=== PATIENT | male | born 1965 | race Caucasian/White ===

== ENCOUNTER → 2020-10-19 18:07 | Outpatient (CLI) | payer BC, SELFPAY ==
[2020-10-19 18:30] LABS: Basophils # 0.1 K/mm3 (0-0.2); Basophils % 0.6 % (0.1-2.0); Eosinophils # 0.1 K/mm3 (0.0-0.4); Eosinophils % 1.4 % (0.1-12.0); Hematocrit 44.9 % (42.0-52.0); Hemoglobin 15.2 g/dL (14.1-18.0); Lymphocytes # 2.9 K/mm3 (0.7-4.5); Lymphocytes % 31.3 % (10-50); Mean Corpuscular HGB Conc 33.7 g/dL (31.8-35.4); Mean Corpuscular Hemoglobin 31.9 pg (27.0-31.2); Mean Corpuscular Volume 94.6 fl (80-94); Mean Platelet Volume 7.4 fl (7.4-10.4); Monocytes # 0.5 K/mm3 (0.1-1.0); Monocytes % 5.8 % (1.7-9.3); Neutrophils # 5.7 K/mm3 (1.8-7.8); Neutrophils % 60.9 % (37.0-80.0); Platelet Count 317 K/mm3 (142-424); Red Blood Count 4.75 M/mm3 (4.60-6.20); Red Cell Distribution Width 13.6 % (11.5-17.5); White Blood Count 9.3 K/mm3 (4.8-10.8)
[2020-10-19 18:58] LABS: Alanine Aminotransferase 30 U/L (12-78); Albumin Level 4.4 g/dl (3.5-5.0); Albumin/Globulin Ratio 1.6 (1.1-1.8); Alkaline Phosphatase 84 U/L (38-126); Aspartate Amino Transferase 27 U/L (17-59); Bilirubin,Total 0.7 mg/dl (0.2-1.3); Blood Urea Nitrogen 13 mg/dl (9-20); Calcium 9.9 mg/dl (8.4-10.2); Carbon Dioxide 29 mmol/L (22.0-30.0); Chloride 102 mmol/L (98-107); Chol/HDL Ratio 2.9 (1-3.5); Cholesterol 177 mg/dl (140-200); Estimated Glomerular Filt Rate 87 ml/min (>60); GFR (African American) 106 ML/MIN (>60); Globulin 2.8 g/dL (1.3-3.2); Glucose 83 mg/dl (74-100); HDL Cholesterol 62 mg/dl (40-60); Sodium 139 mmol/L (136-145); Total Protein,Serum 7.2 g/dl (6.3-8.2); Triglycerides 48 mg/dl (30-150); VLDL Cholesterol 10 mg/dL (0-40)
[2020-10-19 19:09] LABS: Direct LDL Cholesterol 91.64 mg/dL (100-129)
[2020-10-19 19:29] LABS: Prostate Specific Ag Screen 0.4 ng/ml (0.0-4.0)
== END ==
PROVIDERS: Visit Provider Family Medicine
DX: Z12.5 Encounter for screening for malignant neoplasm of prostate (principal); Z00.00 Encounter for general adult medical examination without abnormal findings
CPT/HCPCS: 80053; 80061; 85025; G0103

== ENCOUNTER → 2022-01-24 16:07 | Outpatient (CLI) | payer BC, SELFPAY ==
[2022-01-24 18:13] LABS: Basophils # 0.1 K/mm3 (0-0.2); Basophils % 0.8 % (0.1-2.0); Eosinophils # 0.2 K/mm3 (0.0-0.4); Eosinophils % 2.2 % (0.1-12.0); Hematocrit 43.2 % (42.0-52.0); Hemoglobin 14.1 g/dL (14.1-18.0); Lymphocytes # 2.4 K/mm3 (0.7-4.5); Lymphocytes % 33.6 % (10-50); Mean Corpuscular HGB Conc 32.5 g/dL (31.8-35.4); Mean Corpuscular Hemoglobin 31.4 pg (27.0-31.2); Mean Corpuscular Volume 96.6 fl (80-94); Mean Platelet Volume 7.9 fl (7.4-10.4); Monocytes # 0.4 K/mm3 (0.1-1.0); Monocytes % 6.2 % (1.7-9.3); Neutrophils # 4.1 K/mm3 (1.8-7.8); Neutrophils % 57.3 % (37.0-80.0); Platelet Count 286 K/mm3 (142-424); Red Blood Count 4.47 M/mm3 (4.60-6.20); Red Cell Distribution Width 13.4 % (11.5-17.5); White Blood Count 7.1 K/mm3 (4.8-10.8)
[2022-01-24 18:31] LABS: Alanine Aminotransferase 24 U/L (12-78); Albumin Level 4.3 g/dl (3.5-5.0); Albumin/Globulin Ratio 1.7 (1.1-1.8); Alkaline Phosphatase 60 U/L (38-126); Anion Gap 11.2 mEq/L (5-15); Aspartate Amino Transferase 24 U/L (17-59); Bilirubin,Total 0.7 mg/dl (0.2-1.3); Blood Urea Nitrogen 22 mg/dl (9-20); Calcium 9.3 mg/dl (8.4-10.2); Carbon Dioxide 29 mmol/L (22.0-30.0); Chloride 106 mmol/L (98-107); Chol/HDL Ratio 2.9 (1-3.5); Cholesterol 183 mg/dl (140-200); Estimated Glomerular Filt Rate 87 ml/min (>60); GFR (African American) 105 ML/MIN (>60); Globulin 2.5 g/dL (1.3-3.2); Glucose 77 mg/dl (74-100); HDL Cholesterol 64 mg/dl (40-60); Potassium 4.2 mmoL/L (3.5-5.1); Sodium 142 mmol/L (136-145); Total Protein,Serum 6.8 g/dl (6.3-8.2); Triglycerides 117 mg/dl (30-150); VLDL Cholesterol 23 mg/dL (0-40)
[2022-01-24 18:43] LABS: Direct LDL Cholesterol 85.21 mg/dL (100-129)
[2022-01-24 18:48] LABS: 25-OH Vitamin D, Total 35.7 ng/mL (30-100)
[2022-01-24 18:49] LABS: T4 (Thyroxine) 8.4 ug/dl (5.53-11.0)
[2022-01-24 19:02] LABS: Prostate Specific Ag Screen 0.7 ng/ml (0.0-4.0)
== END ==
PROVIDERS: Visit Provider Family Medicine
DX: R53.83 Other fatigue (principal); E55.9 Vitamin D deficiency, unspecified; Z12.5 Encounter for screening for malignant neoplasm of prostate
CPT/HCPCS: 80053; 80061; 82306; 84436; 84443; 85025; G0103

== ENCOUNTER 2022-11-05 08:03 | Emergency (ER) | payer BC, SELFPAY ==
[2022-11-05 08:04] VITALS: BP 170/102; PULSE 85; RESP 18; TEMP 36.5; O2SAT 99; BMI 25.4
--- NOTE | 2022-11-05 08:19 | HMH.EDGENADL ---
Discharge Plan Disposition Patient Disposition: Home, Self-Care Condition: Good Prescriptions Prescriptions: New prednisone 20 mg tablet 20 mg PO BID Qty: 10 0RF Referrals Follow up/Referrals: Bryson Cristobal MD [Primary Care Provider] - See instructions Activity Restrictions/Add. Instructions Additional Instructions/Restrictions: Prednisone as prescribed. Tylenol 3 as needed for pain. Follow-up with primary care provider, call for appointment. Clinical Impressions Clinical Impression: Cervical radiculopathy Instructions Patient Instructions: DI for Cervical Radiculopathy Discharge ED Provider: Israel Contreras General Adult HPI General Chief complaint: PAIN Stated complaint: pain in Rt side of neck and shoulder, no accident Time Seen by Provider: 11/05/22 08:20 Mode of Arrival: Ambulatory Source of Information: Patient Limitations: No Limitations Description of Symptoms (Recalled from ER Triage Doc. by RN): c/o right neck pain when he turns his head to the right with some pain radiating down his right shoulder. Pt states a few days ago he woke up with a stiff neck. States he had this same issue a few weeks ago but only lasted for a few hours. Denies any injury. Tried Aleeve and biofreeze at home with no improvement. History of Present Illness HPI narrative: Complains of pain in the right side of his neck. States that he woke up with a stiff neck. Pain worsens when he turns his head to the right. Radiates to his right shoulder but no radiation down the arm. No numbness or weakness of the arm, hand, or fingers. No trauma. He has tried Aleve, Biofreeze, and putting snow on it without improvement. No prior history of neck problems, surgery, trauma. No history of IV drug abuse or diabetes. No fever or any other constitutional symptoms. Related Data Previous Rx's Medication Instructions Recorded prednisone 20 mg tablet 20 mg PO BID #10 tabs 11/05/22 Allergies Allergy/AdvReac Type Severity Reaction Status Date / Time No Known Allergies Allergy Verified 01/24/22 16:50 [facility] Disclaimer: The information contained in this section may have been updated after the patient was seen, as this information can be updated by other users. Social History Smoking Status: Never smoker alcohol intake: never substance use type: denies use current occupational status: employed Travel in the last 8 weeks: None ROS Obtained: Yes Systems reviewed as appropriate & no additional complaints except as documented Constitutional Constitutional: Denies excessive sweating, Denies fever(s) and Denies weakness ENT Ears, Nose, Mouth, and Throat: Reports neck pain Cardiovascular Cardiovascular: Denies chest pain Respiratory Respiratory: Denies shortness of breath and Denies cough Gastrointestinal Gastrointestingal: Denies nausea or vomiting Musculoskeletal Musculoskeletal: Reports neck pain and Denies numbness Neurologic Neurologic: Denies numbness and Denies weakness Endocrine Endocrine: Denies excessive sweating Physical Exam General General appearance: alert and in no apparent distress Neck Neck exam: Present normal inspection, trachea midline and tenderness (Right lateral neck); Absent lymphadenopathy Expanded Neck Exam Comment: Limited range of motion to right rotation, but no radiation down the arm with Spurling. Chest Chest inspection: Present normal inspection and symmetric chest wall rise Respiratory Respiratory exam: Absent respiratory distress Cardiovascular Cardiovascular exam: Present regular rate Neurological Exam Neurological exam: Present alert, oriented X3 and CN II-XII intact; Absent motor sensory deficit Psychiatric Psychiatric exam: Present normal affect and normal mood Skin Skin exam: Present warm and dry Medical Decision Making Ran Inquiry Pt receiving controlled substance: No Vital Signs: 11/05/22 08:04 11/05/22 09:26 11/05/22 08:31 [place]
--- NOTE | 2022-11-05 08:25 | XR_ITS ---
PROCEDURE INFORMATION: Exam: XR Cervical Spine Exam date and time: 11/05/2022 8:24 AM Age: 56 years old Clinical indication: Neck pain TECHNIQUE: Imaging protocol: Radiologic exam of the cervical spine. Views: 2 or 3 views. COMPARISON: No relevant prior studies available. FINDINGS: Bones/joints: Diminished cervical lordosis and mild degenerative change. Anatomic alignment. Partial obscuration of the odontoid. Soft tissues: Normal caliber of the prevertebral soft tissues. IMPRESSION: Diminished cervical lordosis and mild degenerative change.
[2022-11-05 08:31] VITALS: BP 166/95; PULSE 78; O2SAT 100
[2022-11-05 09:15] VITALS: BP 161/104; PULSE 73; O2SAT 96
[2022-11-05 09:26] VITALS: BP 155/100; PULSE 73; RESP 17; TEMP 36.5; O2SAT 96
== END 2022-11-05 09:27 | disposition home or self-care (01) ==
PROVIDERS: Emergency Provider Emergency Medicine; PCP Family Medicine
DX: M54.12 Radiculopathy, cervical region (principal); M25.511 Pain in right shoulder; M43.6 Torticollis; Z79.52 Long term (current) use of systemic steroids
CPT/HCPCS: 72040; 96372; 99284; J2405

== ENCOUNTER 2024-07-04 15:33 | Emergency (ER) | payer BC, SELFPAY ==
--- NOTE | 2024-07-04 17:08 | EXP.UTC ---
Discharge Plan Disposition Patient Disposition: Home, Self-Care Condition: Good Prescriptions Prescriptions: New cyclobenzaprine 10 mg Tablet 10 mg PO BID PRN (Reason: Muscle Spasm) Qty: 20 0RF methylprednisolone 4 mg Tablets,Dose Pack 4 mg PO DIRECTED 6 Days Qty: 21 0RF Rx Instructions: Take 1 pack as directed for 6 days No Action losartan 100 mg tablet See Rx Instructions .ROUTE .COMPLEX Qty: 90 0RF Dose Instruction: TAKE 1 TABLET BY MOUTH DAILY Rx Instructions: TAKE 1 TABLET BY MOUTH DAILY Referrals Follow up/Referrals: Navjot Garcia DO [Staff Physician] - See instructions Bryson Cristobal MD [Primary Care Provider] - See instructions Activity Restrictions/Add. Instructions Additional Instructions/Restrictions: Rest the extremity' Take the medications as directed. Don't start the oral steroids (medrol dose pack) until tomorrow since you had the shot here today. The cyclobenzaprine (flexeril-muscle relaxer) will make you drowsy, so don't drive or operate heavy machinery after taking it. Follow up with Dr. Garcia (orthopedics) if you continue to have symptoms. I put in a referral but you need to call his office and schedule an appointment. Follow up with your regular doctor. GO TO THE ER FOR ANY WORSENING SYMPTOMS Clinical Impressions Clinical Impression: Left shoulder pain, Tendinopathy of left shoulder Instructions Patient Instructions: DI for Shoulder Tendinopathy, DI for Shoulder Pain Print Language Print Language: Omani Discharge ED Provider: Rajesh Harry [facility] General Stated complaint: Left shoulder pain,no injury Time Seen by Provider: 07/04/24 17:07 History of Present Illness Provider Complaint: He states that he has had left shoulder pain that is worse when he raises it over his head. He denies any injury. Related Data Previous Rx's ?Medication ?Instructions ?Recorded losartan 100 mg tablet See Rx Instructions .Route 09/10/23 .COMPLEX #90 tabs cyclobenzaprine 10 mg tablet 10 mg PO BID PRN Muscle Spasm #20 07/04/24 tabs methylprednisolone 4 mg tablets in 4 mg PO DIRECTED 6 days #21 tabs 07/04/24 a dose pack Allergies Allergy/AdvReac Type Severity Reaction Status Date / Time No Known Allergies Allergy Verified 12/05/22 16:49 [facility] Disclaimer: The information contained in this section may have been updated after the patient was seen, as this information can be updated by other users. Social History Smoking Status: Never smoker alcohol intake: never substance use type: denies use current occupational status: employed Travel in the last 8 weeks: None ROS Obtained: Yes All systems reviewed & no additional complaints except as documented Constitutional Constitutional: Denies chills and Denies fever(s) Eyes Eyes: Denies eye discharge ENT Ears, Nose, Mouth, and Throat: Denies dizziness, Denies otalgia and Denies sore throat Cardiovascular Cardiovascular: Denies chest pain Respiratory Respiratory: Denies shortness of breath, Denies chest congestion, Denies cough, Denies stridor and Denies wheezing Gastrointestinal Gastrointestingal: Denies nausea or vomiting Musculoskeletal Musculoskeletal: Reports as per HPI Integumentary/Breasts Skin/Breast: Denies rash Neurologic Neurologic: Denies dizziness and Denies paresthesias Allergic/Immunologic Allergic/Immunologic: Denies wheezing Physical Exam General General appearance: alert and in no apparent distress Head Head exam: atraumatic, normocephalic and normal inspection Eye Eye exam: Present normal appearance, PERRL and EOMI ENT ENT exam: Present normal exam, normal oropharynx, mucous membranes moist, TM's normal bilaterally and normal external ear exam Neck Neck exam: Present normal inspection, full ROM and trachea midline; Absent meningismus or lymphadenopathy Chest Chest inspection: Present norm
[2024-07-04 17:15] VITALS: BP 141/87; PULSE 86; RESP 20; TEMP 36.7; O2SAT 98; BMI 26.9
[2024-07-04 17:44] VITALS: BP 141/87; PULSE 86; RESP 20; TEMP 36.7; O2SAT 98
== END 2024-07-04 17:53 | disposition home or self-care (01) ==
PROVIDERS: Emergency Provider Nurse Practitioner Family; PCP Family Medicine
DX: M25.512 Pain in left shoulder (principal); M67.814 Other specified disorders of tendon, left shoulder
CPT/HCPCS: 96372; 99204; 99212; G0463; J1100

== ENCOUNTER 2024-09-05 15:08 | Outpatient (CLI) | payer BC, SELFPAY ==
[2024-09-05 18:27] LABS: Basophils # 0.1 K/mm3 (0-0.2); Basophils % 0.7 % (0.1-2.0); Eosinophils # 0.2 K/mm3 (0.0-0.4); Eosinophils % 1.8 % (0.1-12.0); Hematocrit 40.7 % (42.0-52.0); Hemoglobin 13.8 g/dL (14.1-18.0); Lymphocytes # 2.3 K/mm3 (0.7-4.5); Lymphocytes % 27.9 % (10-50); Mean Corpuscular HGB Conc 33.9 g/dL (31.8-35.4); Mean Corpuscular Volume 94.5 fl (80-94); Mean Platelet Volume 7.3 fl (7.4-10.4); Monocytes # 0.6 K/mm3 (0.1-1.0); Monocytes % 6.9 % (1.7-9.3); Neutrophils # 5.2 K/mm3 (1.8-7.8); Neutrophils % 62.8 % (37.0-80.0); Platelet Count 326 K/mm3 (142-424); Red Blood Count 4.31 M/mm3 (4.60-6.20); Red Cell Distribution Width 13.2 % (11.5-17.5); White Blood Count 8.4 K/mm3 (4.8-10.8)
[2024-09-05 19:02] LABS: Alanine Aminotransferase 21 U/L (12-78); Albumin Level 4.1 g/dl (3.5-5.0); Albumin/Globulin Ratio 1.7 (1.1-1.8); Alkaline Phosphatase 80 U/L (38-126); Aspartate Amino Transferase 23 U/L (17-59); Bilirubin,Total 0.7 mg/dl (0.2-1.3); Blood Urea Nitrogen 21 mg/dl (9-20); Calcium 9.3 mg/dl (8.4-10.2); Carbon Dioxide 27 mmol/L (22.0-30.0); Chloride 108 mmol/L (98-107); Chol/HDL Ratio 2.9 (1-3.5); Cholesterol 172 mg/dl (140-200); Estimated Glomerular Filt Rate 86 ml/min (>60); GFR (African American) 104 ML/MIN (>60); Globulin 2.4 g/dL (1.3-3.2); Glucose 84 mg/dl (74-100); HDL Cholesterol 59 mg/dl (40-60); Sodium 141 mmol/L (136-145); Total Protein,Serum 6.5 g/dl (6.3-8.2); Triglycerides 149 mg/dl (30-150); VLDL Cholesterol 30 mg/dL (0-40)
[2024-09-05 19:13] LABS: Direct LDL Cholesterol 95.76 mg/dL (100-129)
[2024-09-05 19:18] LABS: 25-OH Vitamin D, Total 29.8 ng/mL (30-100)
[2024-09-05 19:34] LABS: Prostate Specific Ag Screen 2.1 ng/ml (0.0-4.0); Thyroid Stimulating Hormone 1.23 uIU/mL (0.465-4.68)
== END 2024-09-05 23:59 | disposition home or self-care (01) ==
LOC: LAB.DROPOF 09-08 15:08
PROVIDERS: PCP Family Medicine; Visit Provider Family Medicine
DX: Z00.00 Encounter for general adult medical examination without abnormal findings (principal)
CPT/HCPCS: 80050; 80053; 80061; 82306; 84443; 85025; G0103

== ENCOUNTER 2024-09-05 15:39 | Outpatient (CLI) | payer BC, SELFPAY ==
--- NOTE | 2024-09-05 15:48 | XR_ITS ---
PROCEDURE INFORMATION: Exam: XR Left Ribs Exam date and time: 09/05/2024 3:51 PM Age: 58 years old Clinical indication: Chest wall pain; Left; Additional info: Pain with breathing rib pain TECHNIQUE: Imaging protocol: Radiologic exam of the left ribs. Views: 2 views. COMPARISON: CR XR CHEST 2V 09/05/2024 3:51 PM FINDINGS: Bones/joints: Minimally displaced left 9th rib fracture. Soft tissues: Normal. IMPRESSION: Minimally displaced left 9th rib fracture
--- NOTE | 2024-09-05 15:48 | XR_ITS ---
PROCEDURE INFORMATION: Exam: XR Chest Exam date and time: 09/05/2024 3:51 PM Age: 58 years old Clinical indication: Chest wall pain; Additional info: Pain with deep breath TECHNIQUE: Imaging protocol: Radiologic exam of the chest. Views: 2 views. COMPARISON: CR XR RIBS LT 2V 09/05/2024 3:51 PM FINDINGS: Lungs: Unremarkable. No consolidation. Pleural spaces: Unremarkable. No pleural effusion. No pneumothorax. Heart/Mediastinum: Unremarkable. No cardiomegaly. Bones/joints: Unremarkable. IMPRESSION: No acute findings.
== END 2024-09-05 23:59 | disposition home or self-care (01) ==
LOC: RAD 15:42
PROVIDERS: PCP Family Medicine; Visit Provider Family Medicine
DX: R07.1 Chest pain on breathing (principal); R07.81 Pleurodynia
CPT/HCPCS: 71046; 71100

== ENCOUNTER 2024-10-15 18:44 | Emergency (ER) | payer BC, SELFPAY ==
[2024-10-15 18:45] VITALS: BP 163/104; PULSE 105; RESP 18; TEMP 36.6; O2SAT 96; BMI 26.9
[2024-10-15 19:23] VITALS: BP 163/104; PULSE 105; O2SAT 97
--- NOTE | 2024-10-15 19:41 | CT_ITS ---
PROCEDURE INFORMATION: Exam: CT Lumbar Spine Without Contrast Exam date and time: 10/15/2024 7:53 PM Age: 58 years old Clinical indication: Low back pain; Additional info: Sever midline pain l3-4 TECHNIQUE: Imaging protocol: Computed tomography of the lumbar spine without contrast. Radiation optimization: All CT scans at this facility use at least one of these dose optimization techniques: automated exposure control; mA and/or kV adjustment per patient size (includes targeted exams where dose is matched to clinical indication); or iterative reconstruction. COMPARISON: No relevant prior studies available. FINDINGS: Bones/joints: Mild facet hypertrophy is documented at the L3-S1 levels. Decreased disc space height L3-L4 with small Schmorl's node at inferior endplate. Bony central canal is widely patent. Soft tissues: Unremarkable. IMPRESSION: 1. No visible acute abnormality. No acute fracture or central canal stenosis. 2. Incidental findings above.
[2024-10-15 19:45] VITALS: BP 145/94; PULSE 107; O2SAT 98
[2024-10-15] MEDS: predniSONE 20MG TAB 40 MG PO (19:45)
[2024-10-15] MEDS: METHOCARBAMOL 500MG TABLET 1500 MG PO (19:45)
[2024-10-15] MEDS: LIDOCAINE 5% TRANSDERMAL PATCH 1 EACH TP (19:45)
--- NOTE | 2024-10-15 20:20 | HMH.EDGENADL ---
Discharge Plan Disposition Patient Disposition: Home, Self-Care Prescriptions Prescriptions: New prednisone 20 mg tablet 40 mg PO DAILY 5 Days Qty: 10 0RF methocarbamol 750 mg tablet 1,500 mg PO TID 5 Days Qty: 30 0RF lidocaine 5 % adhesive patch,medicated 1 patch topical DAILY Qty: 30 0RF Rx Instructions: leave on most painful area for up to 12 hrs No Action losartan 100 mg tablet See Rx Instructions .ROUTE .COMPLEX Qty: 90 0RF Dose Instruction: TAKE 1 TABLET BY MOUTH DAILY Rx Instructions: TAKE 1 TABLET BY MOUTH DAILY tizanidine 4 mg tablet 4 mg PO BID PRN (Reason: muscle spasticity) Qty: 20 4RF Referrals Follow up/Referrals: Jessica Long APRN [Primary Care Provider] - See instructions Activity Restrictions/Add. Instructions Additional Instructions/Restrictions: Call your family doctor to establish care for this visit to the emergency department and schedule follow-up within 48 hours to ensure improvement. If you have any worsening of your condition or any other concerning signs or symptoms, return to the emergency department or your primary care doctor for further evaluation. Prednisone each morning for the next 5 days. Lidocaine patches each day to help with pain. Robaxin 3 times daily as needed for discomfort. Clinical Impressions Clinical Impression: Lumbago Qualifiers: Chronicity: acute Back pain laterality: midline Sciatica presence: without sciatica Qualified Code(s): M54.50 - Low back pain, unspecified Instructions Patient Instructions: DI for Low Back Pain Print Language Print Language: Russian Discharge ED Provider: Paddy Bridges General Adult HPI General Chief complaint: Back Pain/Injury Stated complaint: back pain Time Seen by Provider: 10/15/24 19:23 Mode of Arrival: Ambulatory Source of Information: Patient Limitations: No Limitations Description of Symptoms (Recalled from ER Triage Doc. by RN): Patient reports 10/10 back pain since yesterday afternoon. Took ibuprofen at 3pm. Has not seen pcp. Describes pain as sharp- denies any numbness. History of Present Illness HPI narrative: Please note that above description of symptoms, in this electronic medical record under categorization of recalled from ER triage doctor by RN are reflective of an initial nursing assessment, however, is not reflective of my full history and physical exam that was personally taken and clarified. Consequentially, this preceding description of symptoms, which may include the patient's categorized chief complaint in the EMR, do not reflect my personal clinical impression, and the ultimate description of history of present illness and patient stated complaints should be deferred to this section of the note. Unless stated otherwise or congruent with this section of the note, additional signs, symptoms, or incongruence should be interpreted as inaccurate with my clinical impression. Related Data Previous Rx's ?Medication ?Instructions ?Recorded losartan 100 mg tablet See Rx Instructions .Route 09/05/24 .COMPLEX #90 tabs tizanidine 4 mg tablet 4 mg PO BID PRN muscle spasticity 10/03/24 #20 tabs lidocaine 5 % topical patch 1 patch topical DAILY #30 ea 10/15/24 methocarbamol 750 mg tablet 1,500 mg (2 x 750 mg) PO TID 5 10/15/24 days #30 tabs prednisone 20 mg tablet 40 mg (2 x 20 mg) PO DAILY 5 days 10/15/24 #10 tabs Allergies Allergy/AdvReac Type Severity Reaction Status Date / Time No Known Allergies Allergy Verified 10/03/24 14:42 [facility] Disclaimer: The information contained in this section may have been updated after the patient was seen, as this information can be updated by other users. Social History Smoking Status: Never smoker alcohol intake: never substance use type: denies use current occupational status: employed Travel in the last 8 weeks: None Other Medical History Have you received the Pneumonia Vaccine: No ROS Obtained: Yes All systems reviewed & no additional complaints except as documented Physical Exam General General appearance: alert and in distress (Intermittently having spasms with pain) Head Head exam: atraumatic and normocephalic Eye Eye exam: Present normal appearance, PERRL and EOMI Neck Neck exam: Present normal inspection, full ROM and trachea midline Respiratory Respiratory exam: Absent respiratory distress, wheezes, stridor, accessory muscle use or prolonged expiratory phase Cardiovascular Cardiovascular exam: Present other (Pulses equal symmetric in upper and lower extremities) Abdominal Exam Abdominal exam: Present soft; Absent distention, tenderness or pulsatile mass Extremities Exam Extremities exam: Absent edema Back Exam Back exam: Absent tenderness (No tenderness elicited on my exam, but patient states that his pain is midline) Neurological Exam Neurological exam: Present alert, oriented X3, CN II-XII intact and normal gait; Absent motor sensory deficit Skin Skin exam: Present warm and dry; Absent diaphoresis or erythema Medical Decision Making Medical Records Medical records reviewed: Yes I reviewed the patient's medical records. Screening: Per USPSTF and CDC recommendations, given the prevalence of disease in our region, it is our hospital?s policy to screen for HIV and viral Hepatitis for all patients aged 18 and over and those with ongoing risk factors. Ran Inquiry Pt receiving controlled substance: No Ran was queried for this patient: No Vital Signs: 10/15/24 18:45 10/15/24 19:23 10/15/24 19:45 Temperature 97.9 F Temperature Source Oral Pulse Rate 105 H 107 H Pulse Rate [Right Radial] 105 H Respiratory Rate 18 Blood Pressure 163/104 H 145/94 H Blood Pressure [Right Arm] 163/104 H Blood Pressure Mean [Right Arm] 123 Blood Pressure Source [Right Arm] Automatic Cuff Blood Pressure Position [Right Arm] Supine 02 Sat by Pulse Oximetry 96 97 98 Oxygen Delivery Method Room Air Lab Data Lab Results 10/15/24 20:32: Urine Color Yellow, Urine Appearance Clear, Urine pH 6.0, Ur Specific [place] >= 1.030, Urine Protein Negative, Urine Glucose (UA) Negative, Urine Ketones Negative, Urine Blood Negative, Urine Nitrate Negative, Urine Bilirubin Negative, Urine Urobilinogen 0.2, Ur Leukocyte Esterase Negative, Urine RBC 10-20, Urine WBC Occasional, Ur Squamous Epith Cells Occasional, Urine Bacteria 1+, Urine Mucus 3+ Orders (Tests/Meds): ED MEDICATIONS Discontinued Medications Generic Name Dose Route Start Last Admin Trade Name Freq PRN Reason Stop Dose Admin Lidocaine 1 each 10/15/24 19:41 10/15/24 19:45 Lidocaine 5% Transdermal Patch TP 10/15/24 19:42 1 each ONCE ONE Administration Methocarbamol 1,500 mg 10/15/24 19:41 10/15/24 19:45 Methocarbamol 500mg Tablet PO 10/15/24 19:42 1,500 mg ONCE ONE Administration Prednisone 40 mg 10/15/24 19:41 10/15/24 19:45 Prednisone 20mg Tab PO 10/15/24 19:42 40 mg ONCE ONE Administration ORDERS Category Date Time Status CT lumbar spine wo con Stat Cat Scan 10/15/24 19:41 Completed UA [Urinalysis and Microscopic] Stat Lab 10/15/24 20:32 Completed Medical Decision Narrative: 58-year-old male history of hypertension presenting with back pain. Patient states that he is very physically active job, also lifts weights multiple times a week. Has been having progressively worsening midline lumbar spine pain. No notable injury to the area, but given history, likely. No bowel or bladder dysfunction, saddle anesthesia, numbness, weakness, tingling, falls, or any other concerns. No fevers or chills, no history of IV drug abuse. Has been taking muscle relaxers without relief. History was obtained via conversation with patient. On arrival, patient hemodynamically stable, alert, oriented x4, appropriate, GCS 15, moving all extremities spontaneously, pupils equal and reactive to light. Full physical exam performed and significant for 58-year-old male ambulating around the room appears to be in intermittent pain with spasms. No pain elicited on my exam, but he is neurologically intact and has pain that he states is midline, just deeper than able to touch. No overlying skin changes.. Differential includes disc herniation, muscle spasm, radiculopathy, radiculitis, less likely to be epidural abscess, epidural hematoma, spondylolisthesis, among others. Patient placed on continuous cardiac monitoring and continuous pulse ox with initial blood pressure 163/104, heart rate 105, saturation 98% on room air. Patient was given lidocaine patch, prednisone, Robaxin for symptomatic management and correction of underlying abnormalities. Workup independently interpreted and significant for no acute bony abnormality of the lumbar spine. Patient does have incredibly narrowed disc space at L3/L4, likely representing disc herniation. See radiology read for full review of final results. Urinalysis negative. On reevaluation, patient states that he is feeling little bit better. I feel this is likely bilingual call center representative of mild disc herniation versus lumbar sacral strain. Because patient at baseline without signs or symptoms of clinical decompensation, deemed appropriate for discharge. Results were relayed to patient who voiced understanding and were agreeable to outpatient management and follow up. I discussed my clinical impression with patient and answered all questions. At this time, the evidence for any other entities in the differential is insufficient to warrant any further testing or ED observation. This was explained as well. Advisory was given that persistent or worsening symptoms require further evaluation. I confirmed the understanding of this discussion. [employer] disclaimer Much of this encounter note is an electronic petroleum engineer spoken language to printed text. Electronic petroleum engineer of the spoken language may permit errors. Although I have reviewed the note, some errors may still exist. Critical Care Critical Care Time Critical Care Time: No
[2024-10-15 20:45] LABS: Microscopic, Urine URINE MICROSCOPIC (MICROSCOPIC)
[2024-10-15 21:01] LABS: Appearance,Urine CLEAR (Clear); Blood, Urine Negative (Negative); Color,Urine YELLOW (Yellow); Glucose,Urine (UA) Negative (Negative); Ketones,Urine Negative (Negative); Leukocyte Esterase,Urine Negative (Negative); Nitrate,Urine Negative (Negative); Protein,Urine Negative (Negative); Specific Gravity, Urine >= 1.030 (1.005-1.030); Urobilinogen,Urine 0.2 EU/dl (0.2)
[2024-10-15 21:12] LABS: Bilirubin,Urine Negative (Negative)
[2024-10-15 21:15] LABS: Bacteria,Urine 1+ /lpf; Mucus,Urine 3+ /lpf; Squamous Epithelial Cell,Urine Occasional #/hpf (0-5); WBC,Urine Occasional #/hpf (0-3)
[2024-10-15 21:45] VITALS: BP 145/94; PULSE 99; RESP 18; TEMP 36.6; O2SAT 97
== END 2024-10-15 21:49 | disposition home or self-care (01) ==
PROVIDERS: Emergency Provider Emergency Medicine; PCP Family Medicine
DX: M54.50 Low back pain, unspecified (principal)
CPT/HCPCS: 72131; 81001; 99284